=== PATIENT | male | born 2000 | race Caucasian/White ===

== ENCOUNTER 2020-12-02 12:32 | Emergency (ER) | payer BC, SELFPAY ==
[2020-12-02 12:35] VITALS: BP 143/103; PULSE 98; RESP 20; TEMP 37; O2SAT 97; BMI 21.4
--- NOTE | 2020-12-02 13:02 | HMH.EDUTC ---
[facility] [place] Disposition Clinical Impression: Pain with urination Disposition: Home, Self-Care Condition on Discharge: Good Instructions: DI for Chronic Pain -- Adult Additional Instructions: Follow up with Dr Billy as scheduled for further evaluation and treatment Return if needed Straight to ER if any life threatening symptoms Referrals: Provider,MD Isabel [Primary Care Provider] - Pio Billy MD [Staff Physician] - 12/09/20 2:30 pm Time of Disposition: 13:05 Medical Decision Making - Hiro Inquiry Pt receiving controlled substance: No Hiro was queried for this patient: No Vital Signs: 12/02/20 12:35 Temperature 98.6 F Temperature Source Oral Pulse Rate [Left Brachial] 98 H Respiratory Rate 20 Blood Pressure [Left Arm] 143/103 H Blood Pressure Mean [Left Arm] 116 Blood Pressure Source [Left Arm] Automatic Cuff Blood Pressure Position [Left Arm] Sitting 02 Sat by Pulse Oximetry 97 Oxygen Delivery Method Room Air - Lab Data Lab results reviewed: Yes: I reviewed the patient's lab results. - Physician Consults Physician Consulted: Wenceslao Time: 13:09 Reason -: Urology Eval/Care Comment/Response: Called office and appointment made for patient to follow up with Urology for further evaluation and examination of pain in penis after urination [facility] [place] HPI - General Stated complaint: Painful urination Time Seen by Provider: 12/02/20 13:02 Mode of Arrival: Ambulatory Source of Information: Patient Limitations: No Limitations Description of Symptoms (Recalled from Triage Doc. by RN): PATIENT C/O PAIN WITH/AFTER URINATION INTERMITTENLY X APPROX 2 YEARS, BUT HAS GOTTEN MORE FREQUENT LATELY. STATES PAIN IS FROM BASE OF PENIS TO TIP AND LINGERS AFTER URINATION HEENT Symptoms (Recalled from RN notes): No Resp Symptoms (Recalled from RN notes): No Skin Symptoms (Recalled from RN notes): No MS Symptoms (Recalled from RN notes): No Functional Status (Recalled from RN notes): WNL - History of Present Illness Provider Complaint: Patient states that on and off for a couple of years he has been having penile pain after he urinates from the base of his penis to the tip State that he was in an accident a few years back and thinks he recalls someone checking his prostate and saying it was a little enlarged Denies discharge denies exposure to STD - Related Data Home Medications Medication Instructions Recorded Confirmed No Known Home Medications 05/22/18 12/02/20 Allergies Allergy/AdvReac Type Severity Reaction Status Date / Time No Known Allergies Allergy Verified 05/23/18 14:12 - Worker's Comp Is this a Worker's Comp case?: No [facility] History - Hepatitis A Screen Drug use history?: No High risk sexual behaviors?: No History of sexually transmitted infection?: No Currently employed?: No Childcare worker?: No Do you have indoor plumbing?: Yes Do you have electricity?: Yes Attestation statement:: This patient has been screened for Hepatitis A risk factors. I have reviewed the patient's past medical history: Yes Other Surgeries: Yes: Appendectomy - Social History Smoking Status: Current every day smoker Alcohol Intake: current Occupational Status: other Family Hx:: Asthma ROS Obtained: Yes All systems reviewed & no additional complaints, Yes Systems reviewed as appropriate & no additional complaints - Constitutional Constitutional: Reports system reviewed and no additional complaints, except as docu, Denies body ache, Denies chills, Denies fever(s) - ENT Ears, Nose, Mouth, and Throat: Reports system reviewed and no additional complaints, except as docu - Cardiovascular Cardiovascular: Reports system reviewed and no additional complaints, except as docu - Respiratory Respiratory: Reports system reviewed and no additional complaints, except as docu - Gastrointestinal Gastrointestingal: Reports: system reviewed and no additional complaints, except as docu - Genitourinary Male Genitouri
[2020-12-02 13:11] VITALS: BP 143/103; PULSE 98; RESP 20; TEMP 37; O2SAT 97
[2020-12-02 15:23] LABS: Apearance,Urine Clear (Clear); Bilirubin,Urine Negative (Negative); Blood, Urine Negative (Negative); Color,Urine Dark Yellow (Yellow); Glucose,Urine (UA) Negative (Negative); Ketones,Urine Negative (Negative); Protein,Urine Negative (Negative); Specific Gravity, Urine 1.035 (1.005-1.030); UTC Leukocyte Esterase,Urine Negative (Negative); UTC Nitrate,Urine Negative (Negative); Urobilinogen,Urine 0.2 EU/dl (0.2)
--- NOTE | 2020-12-05 15:20 | PC.NURSE ---
Pt notified paperwork for FMLA is ready to be picked up.
== END 2020-12-02 13:16 | disposition home or self-care (01) ==
PROVIDERS: Emergency Provider Nurse Practitioner
DX: R30.9 Painful micturition, unspecified (principal)
CPT/HCPCS: 81003; 99202; G0463

== ENCOUNTER 2022-05-16 08:58 | Emergency (ER) | payer BC, SELFPAY ==
--- NOTE | 2022-05-16 09:27 | EXP.UTC ---
Discharge Plan Disposition Patient Disposition: Home, Self-Care Condition: Good Prescriptions Prescriptions: New azithromycin [Zithromax] 250 mg tablet 250 mg PO UD DOSE PK Qty: 6 0RF Rx Instructions: Take two (2) tablets today, then one (1) tablet days #2 thru #5 methylprednisolone 4 mg Tablets,Dose Pack 4 mg PO DIRECTED Qty: 21 0RF [id number] [Bromfed DM] 2-30-10 mg/5 mL Syrup 5 ml PO Q6H PRN (Reason: Cough) Qty: 240 0RF Referrals Follow up/Referrals: Provider,Referral, MD [Primary Care Provider] - See instructions Activity Restrictions/Add. Instructions Additional Instructions/Restrictions: Drink plenty of fluids. Take tylenol or ibuprofen for pain or fever. Take the medications as directed. Follow up with your regular doctor. GO TO THE ER FOR ANY WORSENING SYMPTOMS Clinical Impressions Clinical Impression: Pharyngitis Instructions Patient Instructions: DI for Strep Throat Discharge ED Provider: Ra Le [facility] General Stated complaint: fever,sore throat,achey Time Seen by Provider: 05/16/22 09:25 History of Present Illness Provider Complaint: He states that for the past 2 days he has had a very sore throat, sinus congestion and he has felt bad. His girlfriend currently has strep throat. Related Data Previous Rx's Medication Instructions Recorded azithromycin 250 mg tablet 250 mg PO UD DOSE PK #6 tabs 05/16/22 (Zithromax) [id number] 5 ml PO Q6H PRN Cough #240 mL 05/16/22 2 mg-30 mg-10 mg/5 mL oral syrup (Bromfed DM) methylprednisolone 4 mg tablets in 4 mg PO DIRECTED #21 tabs 05/16/22 a dose pack Allergies Allergy/AdvReac Type Severity Reaction Status Date / Time No Known Allergies Allergy Verified 05/16/22 09:[address] [facility] Social History Smoking Status: Current every day smoker alcohol intake: current current occupational status: other Travel in the last 8 weeks: None ROS Obtained: Yes All systems reviewed & no additional complaints except as documented Constitutional Constitutional: Reports chills and Reports fever(s) Eyes Eyes: Denies eye discharge ENT Ears, Nose, Mouth, and Throat: Reports as per HPI Cardiovascular Cardiovascular: Denies chest pain Respiratory Respiratory: Denies shortness of breath, Reports chest congestion, Reports cough, Denies stridor and Denies wheezing Gastrointestinal Gastrointestingal: Reports nausea; Denies abdominal pain, constipation, cramping, diarrhea or vomiting Musculoskeletal Musculoskeletal: Denies arthralgias Integumentary/Breasts Skin/Breast: Denies rash Neurologic Neurologic: Denies paresthesias Allergic/Immunologic Allergic/Immunologic: Denies wheezing Physical Exam General General appearance: alert and in no apparent distress Head Head exam: atraumatic, normocephalic and normal inspection Eye Eye exam: Present normal appearance, PERRL and EOMI ENT ENT exam: Present mucous membranes moist and normal external ear exam Expanded ENT Exam TM/Canal exam: Bilateral TM: erythema and bulging Nose exam: Absent sinus tenderness Mouth exam: Present normal external inspection; Absent drooling Teeth exam: Present normal inspection Throat exam: Present tonsillar erythema, tonsillomegaly and tonsillar exudate Neck Neck exam: Present normal inspection, full ROM and trachea midline; Absent tenderness, meningismus or lymphadenopathy Chest Chest inspection: Present normal inspection and symmetric chest wall rise; Absent tenderness Respiratory Respiratory exam: Present normal lung sounds bilaterally; Absent respiratory distress, wheezes or stridor Cardiovascular Cardiovascular exam: Present regular rate and normal rhythm; Absent systolic murmur or diastolic murmur Abdominal Exam Abdominal exam: Present soft and normal bowel sounds; Absent distention, tenderness, guarding, rebound or rigidity Ex
[2022-05-16 09:34] VITALS: BP 108/66; PULSE 107; RESP 18; TEMP 37.2; O2SAT 99; BMI 23.5
[2022-05-16 09:39] LABS: UTC Strep Screen (Rapid) Negative (Negative)
[2022-05-16 09:40] LABS: UTC Influenza A Antigen Negative (Negative); UTC Influenza B Antigen Negative (Negative)
[2022-05-16 10:21] VITALS: BP 108/66; PULSE 107; RESP 18; TEMP 37.2
== END 2022-05-16 10:22 | disposition home or self-care (01) ==
PROVIDERS: Emergency Provider Nurse Practitioner Family
DX: J02.9 Acute pharyngitis, unspecified (principal); R50.9 Fever, unspecified; R05.9 Cough, unspecified; R09.81 Nasal congestion; F17.200 Nicotine dependence, unspecified, uncomplicated; Z79.52 Long term (current) use of systemic steroids
CPT/HCPCS: 87804; 87880; 99213; G0463